=== PATIENT | female | born 1995 | race African-American/Black ===

== ENCOUNTER 2020-10-22 18:02 | Emergency (ER) | payer OTHER, SELFPAY ==
[2020-10-22] MEDS ORDERED: Ketorolac Tromethamine 30 MG/ML VIAL ONE (19:39)
[2020-10-23 07:02] LABS: SARS-CoV-2 PCR by NAA Not Detected (NotDetected)
== END 2020-10-22 19:57 | disposition home or self-care (01) ==
LOC: CSHERS 18:02
DX: J06.9 Acute upper respiratory infection, unspecified (principal); E66.9 Obesity, unspecified; Z20.822 Contact with and (suspected) exposure to COVID-19
CPT/HCPCS: 87635; 96372; 99284; J1885; U0003; U0005

== ENCOUNTER 2022-10-02 12:44 | Emergency (ER) | payer OTHER, SELFPAY ==
[2022-10-02] MEDS ORDERED: Ketorolac Tromethamine 30 MG/ML VIAL ONE (14:43)
[2022-10-02] MEDS ORDERED: Boostrix 0.5 ML (Tdap) VIAL (>/=7 yrs of age) ONE (15:28)
== END 2022-10-02 15:40 | disposition home or self-care (01) ==
LOC: CSHERS 12:44
DX: S80.212A Abrasion, left knee, initial encounter (principal); S80.211A Abrasion, right knee, initial encounter; V69.40XA Driver of heavy transport vehicle injured in collision with unspecified motor vehicles in traffic accident, initial encounter
CPT/HCPCS: 90471; 90715; 96372; J1885